=== PATIENT | female | born 1930 | race Caucasian/White ===

== ENCOUNTER 2018-12-22 09:40 | Inpatient (IN) ==
[2018-12-22] MEDS ORDERED: ONDANSETRON 4 MG/2 ML VIAL IVP ONE (09:54)
[2018-12-22] MEDS ORDERED: LORazepam 2 MG/1 ML VIAL IVP ONE (09:54)
[2018-12-22] MEDS ORDERED: Sodium Chloride 0.9% 1,000 ML PRIMARY IV ONE (09:54)
[2018-12-22] MEDS ORDERED: MORPHINE SULFATE 4 MG/1 ML IVP ONE (09:54)
[2018-12-22] MEDS ORDERED: LIDOCAINE HCL 2 % 10 ML JELLY URO-JECT TOPICAL PRN ×2 (09:56→12:41)
[2018-12-22] MEDS ORDERED: IPRATROPIUM/ALBUTEROL SULFATE 3 ML NEB NEB ONE (09:56)
--- NOTE | 2018-12-22 09:57 | PDOC ---
Hip Injury/Pain HPI - General Chief Complaint: Lower Extremity Problem/Injury Stated Complaint: lt hip/pelvic pain, found down Date Seen by Provider: 12/22/18 Time Seen by Provider: 09:49 Source: POSITIVE: Patient, EMS Exam Limitations: POSITIVE: No limitations Nurse's Notes Reviewed & Considered: Yes EMS Report Reviewed & Considered: Verbal - History of Present Illness Initial Comments: This is a well-developed, well-nourished, 88-year-old female, complaining of left hip pain. Patient fell out of a chair earlier today and EMS was summoned because of the patient's left hip pain with deformity of her hip, shortening of her leg, and external rotation. Have you received a tetanus shot in the past 10 years?: Yes Location: Left Hip Timing: REPORTS: Abrupt Duration: 1/2 hour Severity: Severe Location at Time of Onset: REPORTS: Home Context: REPORTS: Fall Concurrent Injuries: DENIES: Neck, Head, Back, Chest, Abdomen, Extremities, Face, Other Quality: REPORTS: "Pain" Modifying Factors: REPORTS: Movement, Nothing Relieves Symptoms Prior to Fall: DENIES: Fever, Chills, Diaphoresis, Diaphoresis, Chest Pain, Weakness, Rapid Heart Rate, Nausea, Vomiting, Diarrhea, Dizziness, Light- Headedness, Headache, Seizure, Other Subsequent Symptoms: DENIES: Sensory Loss, Motor Loss, Numbness, Weakness, Bowel / Bladder Problems, Other Similar Symptoms Previously: No Recent Care Received: REPORTS: Denies Any Prior Injuries Related to Current Complaint?: No - Patient Home Medications Home Medications: Home Medications Acetaminophen [Tylenol] 2 tab PO Q6H PRN tab 01/14/17 hydrochlorothiazide 12.5 mg tablet 12.5 mg PO QDAY tab 07/28/17 mirtazapine 7.5 mg tablet 7.5 mg PO QHS 07/28/17 menthol 4 % topical gel 4 % TOPICAL TID PRN ml 03/12/18 cholecalciferol (vitamin D3) 5,000 unit capsule 5,000 unit PO QDAY #90 cap 07/07/18 citalopram 20 mg tablet 20 mg PO QD tab 09/18/18 - Patient Allergies Allergies/Adverse Reactions: Allergies Allergy/AdvReac Type Severity Reaction Status Date / Time bacitracin [From Neosporin] Allergy Unknown UNKNOWN Unverified 04/13/14 14:13 hydrocodone [Hydrocodone] Allergy Unknown UNKNOWN Unverified 04/13/14 14:13 benzalkonium chloride Allergy Verified 11/16/18 12:33 kiwi Allergy Verified 01/26/18 09:57 sulfamethoxazole Allergy Verified 11/16/18 12:33 [From Bactrim] trimethoprim [From Bactrim] Allergy Verified 11/16/18 12:33 Past Medical History - heen HEENT History: Denies History Cardiovascular History: Hypertension, CAD, Hyperlipidemia Respiratory History: COPD Gastrointestinal History: Denies History Genitourinary History: Denies History Endocrine History: Denies History Musculoskeletal History: Denies History Prosthesis or Implant: No Neurological History: Denies History Blood Disorders: Denies History Psychiatric History: Denies History History of Sexually Transmitted Diseases: No Cancer History: Denies History History of MDRO: No History of Other Communicable Diseases: No Alcohol Use: None In the Past 12 Months, Have Used or Abuse Any Substance: None ROS - Limitations ROS Limitations: No Limitations Constitution: REPORTS: Denies Symptoms Cardiovascular: REPORTS: Denies Cardiac Symptoms Respiratory: REPORTS: Wheezing Neurological: REPORTS: Denies Neuro Symptoms Gastrointestinal: REPORTS: Denies GI Symptoms Endocrine: REPORTS: Denies Symptoms Musculoskeletal: REPORTS: Joint Pain (Left hip) Genitourinary: REPORTS: Denies Symptoms Eyes: REPORTS: Denies Symptoms ENT: REPORTS: Denies Symptoms Skin: REPORTS: Denies Skin Symptoms Lympathic: REPORTS: Denies Lympathic Symptoms Immunologic: POSITIVE: Denies Symptoms Psychiatric: POSITIVE: Denies Psych Symptoms Hip Injury / Pain Exam - General Appearance General Appearance: POSITIVE: Alert, Cooperative, Severe Distress - Lower Extremity Extremities: POSITIVE: Shortening of Leg (Left leg), External Rotation of Leg (Left leg), Hip Pain on Leg Movement (Left leg), Hip/Knee Tenderness (Left hip) - HEENT HEENT: POSITIVE: Head Inspection Nml, Eyes Inspection Nml, Ears Inspection Nml, Nose Inspection Nml, Oral/Dental Inspect. Nml, Pharynx Inspect. Nml, PERRL, EOMI - Pupil Size Pupil Size: 5 mm: Bilateral - Neck/Back Neck: POSITIVE: Normal Inspection, Non-Tender Back: POSITIVE: Normal Inspection, No CVA Tenderness, Non Tender, Painless ROM, No Vertebral Tenderness - Respiratory / CVS Cardiovascular: POSITIVE: Regular Rate and Rhythm, Heart Sounds Normal, Equal Pulses, Strong Pulses, No Murmur, No Gallop, No JVD, No Pulse Deficit Respiratory: POSITIVE: Chest Non Tender, No Ecchymosis, No Respiratory Distress, Wheezes Peripheral Pulses: Brachial (L): 4+, Radial (R): 4+, Femoral (L): 4+, Dorsalis- pedis (R): 4+, Dorsalis-pedis (L): 4+ - Abdomen Abdomen: Soft: (All Quadrants), Normal Bowel Sounds: (All Quadrants), Denies Tenderness: (All Quadrants), No Splenomegaly: (All Quadrants), No Hepatomegaly: (All Quadrants), No Guarding: (All Quadrants), No Rebound: (All Quadrants), No Palpable Pulse: (All Quadrants), No Palpabale Mass: (All Quadrants), No Distention: (All Quadrants), No Rigidity: (All Quadrants) - Skin Skin: POSITIVE: Color Normal, No Rash, Warm, Dry, Normal Palpation - Neuro/Psych Neuro / Psych: POSITIVE: Oriented x 3, Neuro Grossly Intact, Mood Appropriate, Affect Appropriate Hip Injury / Pain Progress - Results Reviewed by me Xrays/CTs/US Reviewed by me: Yes Discussed with Radiologist: Yes Lab Results Reviewed by Me: Yes CBC and BMP: 12/22/18 10:07 12/22/18 10:07 Lab Results:: Laboratory Results 12/22/18 12/22/18 12/22/18 10:07 10:07 10:07 WBC 8.6 RBC 4.53 Hgb 14.5 Hct 43.1 MCV 95 MCH 31.9 H MCHC 33.6 RDW Coeff of Jeff 13.6 Plt Count 228 MPV 7.8 Neutrophils % (Manual) 67.3 Band Neutrophils % Not Reportable Lymphocytes % (Manual) 18.9 Monocytes % (Manual) 9.4 Eosinophils % (Manual) 3.7 Basophils % (Manual) 0.7 Metamyelocytes % Not Reportable Myelocytes % Not Reportable Promyelocytes % Not Reportable Blast Cells Not Reportable WBC Morphology Comment Normal morphology Plt Morphology Comment Normal morphology RBC Morph Comment Normal morphology PT 12.9 H INR 1.12 APTT 30.7 Sodium 144 Potassium 3.8 Chloride 100 Carbon Dioxide 31 Anion Gap 13 BUN 22 Creatinine 1.3 H Estimated GFR Wildlife Photographer BUN/Creatinine Ratio 16.92 Glucose 90 Calculated Osmolality 300.0 H Calcium 9.5 Magnesium 1.8 Total Bilirubin 0.5 AST 26 ALT 16 Alkaline Phosphatase 39 C-Reactive Protein 2.3 H NT-Pro-B Natriuret Pep 403 Total Protein 6.8 Albumin 3.9 Globulin 3.0 Albumin/Globulin Ratio 1.30 TSH 12/22/18 10:07 WBC RBC Hgb Hct MCV MCH MCHC RDW Coeff of Jeff Plt Count MPV Neutrophils % (Manual) Band Neutrophils % Lymphocytes % (Manual) Monocytes % (Manual) Eosinophils % (Manual) Basophils % (Manual) Metamyelocytes % Myelocytes % Promyelocytes % Blast Cells WBC Morphology Comment Plt Morphology Comment RBC Morph Comment PT INR APTT Sodium Potassium Chloride Carbon Dioxide Anion Gap BUN Creatinine Estimated GFR BUN/Creatinine Ratio Glucose Calculated Osmolality Calcium Magnesium Total Bilirubin AST ALT Alkaline Phosphatase C-Reactive Protein NT-Pro-B Natriuret Pep Total Protein Albumin Globulin Albumin/Globulin Ratio TSH 0.949 EKG Interpreted/Reviewed By Me:: Yes - Patient's Progress Re-Examine Time: 12:03 Status: POSITIVE: Improved - Consult Consult (If Yes, Name of Consulting MD & Time Called): Yes (Dr. Gupta and Dr. Pearce at 1200 hrs.) Consulting MD will see pt:: POSITIVE: [facility] Admit Counseled: POSITIVE: Patient, RE: Lab Results, RE: Radiology Results, RE: DX, RE : Need for F/U Patient Care Time - Estimated PCT Patient Care Time (In Minutes): 45 Vital Signs - Recent Vital Signs Vital Signs: Vital Signs (Last 8 hours) Temp Pulse Pulse Resp BP Pulse Ox 12/22/18 10:17 83 20 98 12/22/18 10:16 87 22 91 12/22/18 09:40 99.0 F 95 18 112/78 92 - VS Reviewed Vital Signs Reviewed: Yes Discharge Clinical Impression: Intertrochanteric fracture of left hip Discharge Disposition: Admit to Inpatient Condition: Stable Follow Up With: ELLIE FUENTES [Primary Care Provider] - Date Decision to Admit to Inpatient: 12/22/18 Time Decision to Admit to Inpatient: 12:03
--- NOTE | 2018-12-22 10:12 | EKG ---
[address] [address] Measurements Intervals [place] Rate: 82 P: 69 MN: 141 QRS: 56 QRSD: 134 T: 20 QT: 396 QTc: 434 Interpretive Statements SINUS RHYTHM RIGHT BUNDLE BRANCH BLOCK [120+ ms QRS DURATION, UPRIGHT V1, 40+ ms S IN I/aVL/V4/V5/V6] No previous ECG available for comparison Electronically Signed On 12-22-18 11:04:23 MDT by Jong Hope MD [email or web address]
[2018-12-22 10:18] LABS: Hematocrit [HCT] 43.1 % (37.0-47.0); Hemoglobin [HGB] 14.5 g/dL (12.0-16.0); MEAN CORPUSCULAR HEMOGLOBIN 31.9 PG (27-31); MEAN CORPUSCULAR HGB CONC 33.6 g/dL (33-37); MEAN CORPUSCULAR VOLUME 95 FL (81-99); RED BLOOD COUNT 4.53 10^6/uL (4.20-5.40)
[2018-12-22 10:19] LABS: MEAN PLATELET VOLUME 7.8 FL (7.4-12.2)
[2018-12-22 10:27] LABS: BLOOD UREA NITROGEN 22 mg/dL (7-22); BUN/CREATININE RATIO 16.92 (6-20); SERUM ALBUMIN 3.9 g/dL (3.5-4.8)
[2018-12-22 10:40] LABS: BASOPHILS % (MANUAL) 0.7 % (0-1); EOSINOPHILS % (MANUAL) 3.7 % (0-8); MONOCYTES % (MANUAL) 9.4 % (0-12); NEUTROPHILS % (MANUAL) 67.3 % (50-80); PLATELET MORPHOLOGY COMMENT NORMAL MORPHOLOGY (NORM); RBC MORPHOLOGY COMMENT NORMAL MORPHOLOGY (NORM); WBC MORPHOLOGY COMMENT NORMAL MORPHOLOGY (NORM)
--- NOTE | 2018-12-22 11:01 | DI ---
XR CXR 1VW,12/22/2018 9:54 AM: Clinical History: Wheezing Previous Exam: None at this facility. Findings: A single frontal radiograph of the chest is obtained, and demonstrates clear lungs. The cardiomediast inum and bony thorax are unremarkable except for postsurgical changes consistent with CABG. Sternotomy wires are seen. Mild diffuse osteopenia is noted. Impression: No acute cardiopulmonary disease.
--- NOTE | 2018-12-22 11:10 | DI ---
XR HIP COMPLETE MIN 2VW U/L,12/22/2018 9:54 AM: Clinical History: Deformity and left hip pain. Previous Exam: None at this facility. Findings: AP view of the pelvis, AP view of the left hip and crosstable lateral view of the left hip are obtain ed, and demonstrate a slightly displaced intertrochanteric fracture of the proximal left femur. Peripheral vascular calcifications are noted. There is mild diffuse osteopenia. Impression: Status post left proximal femoral intertrochanteric fracture.
--- NOTE | 2018-12-22 12:22 | DI ---
CT Lower Extremity WO Contrast,12/22/2018 10:39 AM: Clinical History: Left hip fracture. Previous Exam: None at this facility. Findings: Multiple helically acquired CT images are obtained through the left hip without contrast, and demonst rate a displaced, slightly comminuted intertrochanteric fracture of the left hip. There are degenerat antonio changes of the left hip with some subchondral cyst formation along the superior lateral acetabulu m. Superior and inferior pubic rami are within normal limits. There is some mild diffuse osteopenia. A few peripheral vascular calcifications are seen. Impression: Slightly comminuted intertrochanteric fracture of the left proximal femur.
[2018-12-22 12:37] LABS: BILIRUBIN,URINE NEGATIVE (NEG); CLARITY,URINE CLEAR (CLEAR); COLOR,URINE YELLOW (Y); GLUCOSE, URINE (UA) NEGATIVE (NEG); OCCULT BLOOD,URINE NEGATIVE (NEG); PH,URINE 5.5 (5.0-8.5); PROTEIN,URINE NEGATIVE (NEG); URINE SAMPLE TYPE CLEAN CATCH URINE; UROBILINOGEN,URINE 0.2 EU/dL (0.2)
[2018-12-22] MEDS ORDERED: ONDANSETRON 4 MG/2 ML VIAL IVP PRN (12:41)
[2018-12-22] MEDS ORDERED: DOCUSATE 100 MG CAPSULE PO PRN (12:41)
[2018-12-22] MEDS ORDERED: CALCIUM CARBONATE 500 MG (TUMS) CHEWABLE TABLET PO PRN (12:41)
[2018-12-22] MEDS ORDERED: traMADol 50 MG TABLET PO PRN (12:41)
[2018-12-22] MEDS ORDERED: ACETAMINOPHEN 325 MG TABLET PO PRN (12:41)
[2018-12-22] MEDS ORDERED: LIDOCAINE W/ SODIUM BICARB 0.5 ML SYR SUBD PRN (12:41)
--- NOTE | 2018-12-22 13:13 | PDOC ---
HPI - History of Present Illness Date of Service: 12/22/18 Time of Service: 13:08 Chief Complaint: I hurt all over History of Present Illness: This very pleasant 88-year-old female who suffers from dementia, coronary artery disease status post CABG, amongst other medical problems who resides at [facility] and apparently had some sort of ground-level fall that was described as mechanical and I spoke with the emergency room physician. The patient cannot provide me any history of present events due to her dementia. She states that she is in pain "all over". When I try to pinpoint exactly where she hurts the most she seems to isolate the left hip. She has a left lower extremity that is shorter than the right, and is externally rotated, consistent with hip fracture. Imaging showed an intertrochanteric hip fracture. She does not complain of shortness of breath or nausea or vomiting. Unfortunately other details are just very difficult to obtain, again, due to dementia. No family is available at this time. Past Medical History Medical History: 1. Depression. 2. Hypertension. 3. Coronary artery disease status post CABG and subsequently later on had a stent. 4. Dementia Surgical History: 1. CABG. 2. Coronary artery stent. 3. Cholecystectomy. 4. Knee surgery. 5. History of tonsillectomy Pertinent Family History: I cannot obtain family history from the patient due to her dementia Past Social History: Reportedly quit smoking over 30 years ago. Does not drink alcohol. Resides in [facility]. Has children and is . Tobacco Use: Former Smoker In the Past 12 Months, Have Used or Abuse Any of the Following Substance: None Alcohol Use: None Medication / Allergies Home Medications: Home Medications Medication Instructions Recorded Confirmed Acetaminophen [Tylenol] 2 tab PO Q6H PRN tab 01/14/17 11/16/18 hydrochlorothiazide 12.5 mg tablet 12.5 mg PO QDAY tab 07/28/17 11/16/18 mirtazapine 7.5 mg tablet 7.5 mg PO QHS 07/28/17 11/16/18 menthol 4 % topical gel 4 % TOPICAL TID PRN ml 03/12/18 11/16/18 cholecalciferol (vitamin D3) 5,000 5,000 unit PO QDAY #90 cap 07/07/18 11/16/18 unit capsule citalopram 20 mg tablet 20 mg PO QD tab 09/18/18 11/16/18 Allergies/Adverse Reactions: Allergies Allergy/AdvReac Type Severity Reaction Status Date / Time bacitracin [From Neosporin] Allergy Unknown UNKNOWN Unverified 04/13/14 14:13 hydrocodone [Hydrocodone] Allergy Unknown UNKNOWN Unverified 04/13/14 14:13 benzalkonium chloride Allergy Verified 11/16/18 12:33 kiwi Allergy Verified 01/26/18 09:57 sulfamethoxazole Allergy Verified 11/16/18 12:33 [From Bactrim] trimethoprim [From Bactrim] Allergy Verified 11/16/18 12:33 Review of Systems - Review of Systems ROS Unobtainable: Due to Mental Status (I cannot obtain a review systems due to the patient's dementia.) Exam - Vitals Vital Signs: Vital Signs Temperature 99.0 F Temperature Source Temporal Artery Scan Pulse Rate [Pulse Oximeter 95 Right] Pulse Rate 83 Respiratory Rate 20 Blood Pressure [Left Arm] 112/78 Pulse Ox 98 Oxygen Flow Rate 2 lpm Oxygen Delivery Method Nasal Cannula Height 5 ft Weight 173 lb 9.6 oz - General General Appearance: No Acute Distress, Cooperative - Head Head Exam: Normal Inspection, Normocephalic, Atraumatic - Eye Additional Eye Exam Details: Some dryness to the eyes. - ENT ENT Exam: POSITIVE: Mucous Membranes Dry - Neck Neck Exam: Normal Inspection, No Tenderness, No Lymphadenopathy, No Thyromegaly, JVP is not Raised - Respiratory Respiratory Exam: POSITIVE: Breathing Non Labored, Coarse Breath Sounds (In the bases bilaterally) - Cardiovascular Cardiovascular Exam: POSITIVE: No Murmur, No Clicks, No Gallops, No Rubs, Irregular Rhythm, No JVD - GI/Abdominal GI/Abdominal Exam: POSITIVE: Normal Bowel Sounds, Non Tender, Non Distended, Soft - Rectal Rectal Exam: POSITIVE: Deferred - External Exam: POSITIVE: Deferred Exam: POSITIVE: Deferred - Extremities Extremities Exam: POSITIVE: No Clubbing Present, No Edema Present, No Cyanosis Present Additional Extremities Exam Details: Left lower extremity is externally rotated and shorter than the right. - Back Back Exam: POSITIVE: No CVA Tenderness - Neurological Neurological Exam: POSITIVE: Alert, No Facial Droop, Speech Intact / Clear Additional Neurological Exam Details: The patient cannot tell me where she is at and cannot tell me the situation - Integumentary Integumentary Exam: POSITIVE: Normal Color, Warm, Dry, Intact Results - Labs CBC and BMP: 12/22/18 10:07 12/22/18 10:07 Additional Lab Results: Laboratory Results 12/22/18 12/22/18 12/22/18 10:07 10:07 10:07 WBC 8.6 RBC 4.53 Hgb 14.5 Hct 43.1 MCV 95 MCH 31.9 H MCHC 33.6 RDW Coeff of Jeff 13.6 Plt Count 228 MPV 7.8 Neutrophils % (Manual) 67.3 Band Neutrophils % Not Reportable Lymphocytes % (Manual) 18.9 Monocytes % (Manual) 9.4 Eosinophils % (Manual) 3.7 Basophils % (Manual) 0.7 Metamyelocytes % Not Reportable Myelocytes % Not Reportable Promyelocytes % Not Reportable Blast Cells Not Reportable WBC Morphology Comment Normal morphology Plt Morphology Comment Normal morphology RBC Morph Comment Normal morphology PT 12.9 H INR 1.12 APTT 30.7 Sodium 144 Potassium 3.8 Chloride 100 Carbon Dioxide 31 Anion Gap 13 BUN 22 Creatinine 1.3 H Estimated GFR Sole Sewer Hand BUN/Creatinine Ratio 16.92 Glucose 90 Calculated Osmolality 300.0 H Calcium 9.5 Magnesium 1.8 Total Bilirubin 0.5 AST 26 ALT 16 Alkaline Phosphatase 39 C-Reactive Protein 2.3 H NT-Pro-B Natriuret Pep 403 Total Protein 6.8 Albumin 3.9 Globulin 3.0 Albumin/Globulin Ratio 1.30 TSH Ur Collection Type Urine Color Urine Clarity Urine pH Ur Specific [place] Urine Protein Urine Glucose (UA) Urine Ketones Urine Occult Blood Urine Nitrate Urine Bilirubin Urine Urobilinogen Ur Leukocyte Esterase Ur Culture Indicated? 12/22/18 12/22/18 10:07 12:27 WBC RBC Hgb Hct MCV MCH MCHC RDW Coeff of Jeff Plt Count MPV Neutrophils % (Manual) Band Neutrophils % Lymphocytes % (Manual) Monocytes % (Manual) Eosinophils % (Manual) Basophils % (Manual) Metamyelocytes % Myelocytes % Promyelocytes % Blast Cells WBC Morphology Comment Plt Morphology Comment RBC Morph Comment PT INR APTT Sodium Potassium Chloride Carbon Dioxide Anion Gap BUN Creatinine Estimated GFR BUN/Creatinine Ratio Glucose Calculated Osmolality Calcium Magnesium Total Bilirubin AST ALT Alkaline Phosphatase C-Reactive Protein NT-Pro-B Natriuret Pep Total Protein Albumin Globulin Albumin/Globulin Ratio TSH 0.949 Ur Collection Type Clean catch urine Urine Color Yellow Urine Clarity Clear Urine pH 5.5 Ur Specific [place] 1.015 Urine Protein Negative Urine Glucose (UA) Negative Urine Ketones Negative Urine Occult Blood Negative Urine Nitrate Negative Urine Bilirubin Negative Urine Urobilinogen 0.2 Ur Leukocyte Esterase Negative Ur Culture Indicated? Culture not set - EKG Data -: EKG Interpreted by Me Rate: Normal EKG Shows Normal: Sinus Rhythm - EKG Data EKG Interpretation: Nonspecific ST-T Wave Changes (T-wave inversions in V1 V2 and flattening in V3), Other (The patient has a right bundle branch block) - Imaging Status: Image Reviewed by Me (I looked at the chest x-ray, I think there could be some signs of fluid congestion, but no pneumonia. There are signs of prior CABG with sternotomy wires noted in prior stent placement. The patient had an x-ray of her left hip and on my view of that, there is an intertrochanteric hip fracture.) Assessment and Plan - Patient Problems (1) Intertrochanteric fracture of left hip Current Visit: Yes Status: Acute Code(s): S72.142A - Displaced i ntertrochanteric fracture of left femur, initial encounter for closed fracture Qualifiers: Encounter type: initial encounter Fracture type: closed Fracture alignment: displaced Qualified Code(s): S72.142A - Displaced intertrochanteric fracture of left femur, initial encounter for closed fracture (2) Coronary artery disease Current Visit: Yes Status: Acute Code(s): I25.10 - Atherosclerotic heart disease of [place] coronary artery without angina pectoris Qualifiers: Coronary Disease-Associated Artery/Lesion type: bypass graft, autologous artery Associated angina: without angina Qualified Code(s): I25.810 - Atherosclerosis of coronary artery bypass graft(s) without angina pectoris (3) Vitamin D deficiency Current Visit: Yes Status: Chronic Code(s): E55.9 - Vitamin D deficiency, unspecified (4) Benign hypertension Current Visit: Yes Status: Chronic (5) Chronic obstructive lung disease Current Visit: Yes Status: Chronic Qualifiers: COPD type: emphysema Emphysema type: centrilobular Qualified Code(s): J43.2 - Centrilobular emphysema; J43.2 - Centrilobular emphysema; J43.2 - C entrilobular emphysema; J43.2 - Centrilobular emphysema (6) Gastroesophageal reflux disease Current Visit: Yes Status: Chronic Qualifiers: Esophagitis presence: esophagitis presence not specified Qualified Code(s): K21.9 - Gastro-esophageal reflux disease without esophagitis - Assessment / Plan Additional Assessment/Plan Details: Admit the patient Orthopedic consultation for hip fracture. From on AHA/ACC non-vascular perioperative guidelines for surgical clearance perspective, I think the patient should proceed to the operating room with postoperative risk stratification. She has redness in that she has an age of 88 and has coronary artery disease and some nonspecific EKG changes, but no kidney failure, no history of stroke, and no congestive heart failure. However, given the nature of the injury I think the patient should proceed with surgery as noted above. Pain control with parenteral medications such as Dilaudid and tramadol. Antiemetics. Nothing by mouth at midnight. Eventual DVT prophylaxis postoperatively, 28-35 days. Hold today PT and OT. Vitamin D level. Continue vitamin D therapy MRSA screening [place] catheter due to immobility and hopefully get that out 48 hours postoperatively if possible Likely option postop will be to return back to [facility] Type and screen for 2 units packed red blood cells CODE STATUS is discussed, patient is DNR as I believe CPR to be futile in this patient based on age and medical conditions. I placed a call to the patient's daughter to discuss further. Left message.
[2018-12-22] MEDS: CITALOPRAM 20 MG TABLET PO SCH (13:47)
[2018-12-22] MEDS: HYDROmorphone 2 MG/1 ML IVP PRN ×2 (14:02→18:54)
[2018-12-22] MEDS: Lactated Ringers 1,000 ML PRIMARY IV SCH (14:02)
--- NOTE | 2018-12-22 15:59 | CONSULT ---
Consult Note - Consult Consult Date: 12/22/18 Reason for Consult: PreOp Consulation : Ortho Primary Care Provider: Heath Quigley MD - History of Present Illness History of Present Illness: This is a pleasant 88-year-old female with dementia who is admitted through the emergency room with a left intertrochanteric hip fracture. Patient has been admitted to Dr. Gilmore's service. I have had a chance to speak with the patient as well as both of her daughters. One of her daughters has power of business development executive. She is a fairly poor historian and is unable to provide details as to how she fell. Reportedly she fell at the [facility] sometime today sustaining the fracture. She is admitted for definitive care. Examination reveals a pleasant female slightly overweight with her left lower extremity in Horne's traction. Lateral skin is intact. X-rays and CAT scan of been reviewed. These reveal a left intertrochanteric hip fracture with a fracture of the lesser tuberosity and also fracture of the greater tuberosity. Labs have been commented on by Dr. Pearce. Impression: Unstable left intertrochanteric hip fracture in an 88-year-old female. Patient has a DO NOT RESUSCITATE on the chart. Plan: Is to proceed with intramedullary hip fixation tomorrow afternoon. I discussed the risks at length with the 2 daughters. These include but are not limited to infection, failure of fixation, malunion, nonunion, blood clot, anesthetic related complications, and even . They understand these risks and agree to let me proceed. I have spoken with Dr. Pearce who feels like proceeding with the surgery is reasonable. We will have the daughter with power of business development executive signed the consent form prior to proceeding. Past Medical History Medical History: 1. Depression. 2. Hypertension. 3. Coronary artery disease status post CABG and subsequently later on had a stent. 4. Dementia Surgical History: 1. CABG. 2. Coronary artery stent. 3. Cholecystectomy. 4. Knee surgery. 5. History of tonsillectomy Pertinent Family History: I cannot obtain family history from the patient due to her dementia Past Social History: Reportedly quit smoking over 30 years ago. Does not drink alcohol. Resides in [facility]. Has children and is . Tobacco Use: Former Smoker In the Past 12 Months, Have Used or Abuse Any of the Following Substance: None Alcohol Use: None Medication / Allergies Home Medications: Home Medications Medication Instructions Recorded Confirmed Acetaminophen [Tylenol] 2 tab PO Q6H PRN tab 01/14/17 11/16/18 hydrochlorothiazide 12.5 mg tablet 12.5 mg PO QDAY tab 07/28/17 11/16/18 mirtazapine 7.5 mg tablet 7.5 mg PO QHS 07/28/17 11/16/18 menthol 4 % topical gel 4 % TOPICAL TID PRN ml 03/12/18 11/16/18 cholecalciferol (vitamin D3) 5,000 5,000 unit PO QDAY #90 cap 07/07/18 11/16/18 unit capsule citalopram 20 mg tablet 20 mg PO QD tab 09/18/18 11/16/18 Allergies/Adverse Reactions: Allergies Allergy/AdvReac Type Severity Reaction Status Date / Time bacitracin [From Neosporin] Allergy Unknown UNKNOWN Unverified 04/13/14 14:13 benzalkonium chloride Allergy Unknown Unknown Verified 12/22/18 14:19 hydrocodone [Hydrocodone] Allergy Unknown UNKNOWN Unverified 04/13/14 14:13 kiwi Allergy unknown Verified 12/22/18 14:19 sulfamethoxazole Allergy Unknown Verified 12/22/18 14:19 [From Bactrim] trimethoprim [From Bactrim] Allergy Unknown Verified 12/22/18 14:19 Exam - Vitals Vital Signs: Vital Signs Temperature 97.8 F Temperature Source Temporal Artery Scan Pulse Rate [Pulse Oximeter 85 Right] Pulse Rate [Left Middle Finger 98 ] Pulse Rate 98 Respiratory Rate 24 Blood Pressure [Left Arm] 172/83 Pulse Ox [Left Middle Finger] 92 Pulse Ox 91 Oxygen Flow Rate [Left Middle 5 Finger] Oxygen Flow Rate 2 Oxygen Delivery Method [Left Oxymask Middle Finger] Oxygen Delivery Method Nasal Cannula Height 5 ft Weight 173 lb 9.6 oz Results - Labs CBC and BMP: 12/22/18 10:07 12/22/18 10:07
[2018-12-22] MEDS ORDERED: NALOXONE 0.4 MG/1 ML VIAL ONE ×2 (20:27→22:15)
[2018-12-22] MEDS ORDERED: Mirtazapine Tab 15 MG TAB PO SCH (21:00)
[2018-12-22] MEDS ORDERED: NALOXONE 0.4 MG/1 ML VIAL IVP ONE (22:13)
[2018-12-22] MEDS ORDERED: Lactated Ringers 1,000 ML PRIMARY IV SCH (23:55)
[2018-12-23 00:41] LABS: VENOUS PH 7.22 (7.32-7.42)
[2018-12-23 00:43] LABS: VENOUS PH 7.28 (7.32-7.42)
[2018-12-23] MEDS: Lactated Ringers 1,000 ML PRIMARY IV SCH ×2 (02:31→18:40)
[2018-12-23] MEDS: Acetaminophen 1000mg Inj 1,000 MG/100 ML VIAL IV PRN ×2 (02:37→11:23)
[2018-12-23 04:51] LABS: VENOUS PH 7.4 (7.32-7.42)
[2018-12-23] MEDS: CITALOPRAM 20 MG TABLET PO SCH (08:48)
[2018-12-23] MEDS ORDERED: CHOLECALCIFEROL 1000 IU TABLET PO SCH (09:00)
--- NOTE | 2018-12-23 11:24 | PT.PROG ---
Progress Note Progress Note: per nursing pt is on bedrest prior to surgery hold PT eval until after surgery
[2018-12-23] MEDS ORDERED: MIDAZOLAM HCL 2 MG/2 ML VIAL ONE (11:47)
[2018-12-23] MEDS ORDERED: fentaNYL Inj 100 MCG/2 ML VIAL ONE ×2 (11:47→16:44)
[2018-12-23] MEDS ORDERED: ePHEDrine Inj 50 MG/ML AMP ONE (11:48)
[2018-12-23] MEDS ORDERED: Sodium Chloride 0.9% vial 10 ML ONE (11:48)
[2018-12-23] MEDS ORDERED: ceFAZolin 1 GM VIAL IVP ONE (12:33)
[2018-12-23] MEDS ORDERED: ceFAZolin Inj 2gm (Premix) 2 GM/50 ML BAG IV ONE ×2 (12:34→14:48)
[2018-12-23] MEDS ORDERED: IPRATROPIUM/ALBUTEROL SULFATE 3 ML NEB NEB ONE ×2 (12:50→13:05)
[2018-12-23] MEDS ORDERED: ATROPINE SULFATE 0.4 MG/1 ML VIAL IVP PRN (12:51)
[2018-12-23] MEDS ORDERED: ONDANSETRON 4 MG/2 ML VIAL IVP PRN ×2 (12:51→17:13)
[2018-12-23] MEDS ORDERED: fentaNYL Inj 100 MCG/2 ML VIAL IVP PRN (12:51)
[2018-12-23] MEDS ORDERED: Prochlorperazine Edisylate Inj 10mg/2ml vial IVP PRN (12:51)
[2018-12-23] MEDS ORDERED: LIDOCAINE W/ SODIUM BICARB 0.5 ML SYR SUBD PRN (12:51)
[2018-12-23] MEDS ORDERED: Lactated Ringers 1,000 ML PRIMARY IV SCH (13:00)
[2018-12-23] MEDS ORDERED: KETAMINE HCL 100 MG/2 ML SYRINGE IV ONE (13:12)
[2018-12-23] MEDS ORDERED: Sodium Chloride 0.9% 0 ML ONE (13:33)
--- NOTE | 2018-12-23 13:54 | PDOC(PROG) ---
Date of Service: 12/23/18 Time of Service: 08:45 Interval History: Much more alert today. Became acidotic and had hypercapnic respiratory failure overnight from Dilaudid. We gave her Narcan and used BiPAP through the night, and her acidosis and hypercapnia have corrected. She denies chest pain or shortness of breath but her history is unreliable with her dementia. Objective : Data - Labs CBC and BMP: 12/22/18 10:07 12/22/18 10:07 Additional Lab Results: 12/22/18 12/23/18 12/23/18 12:27 00:18 04:32 VBG pH 7.28 L 7.40 VBG pCO2 71 H 46 VBG HCO3 33 H 29 H VBG Base Excess 6 H 4 H Vitamin D 25-Hydroxy Ur Culture Indicated? Culture not set 12/23/18 04:33 VBG pH VBG pCO2 VBG HCO3 VBG Base Excess Vitamin D 25-Hydroxy 61.2 Ur Culture Indicated? Objective : Exam - General General Appearance: No Acute Distress, Cooperative Additional General Exam Details: Selected Entries 12/23/18 07:36 12/23/18 11:00 Temperature 97.5 F Pulse Rate [Pulse Oximeter Right] 72 Respiratory Rate 16 Blood Pressure [Left Arm] 127/63 Blood Pressure Mean [Left Arm] 84 Pulse Ox [Left Middle Finger] 95 Oxygen Flow Rate [Left Middle Finger] 2 - Head Head Exam: Normal Inspection, Normocephalic, Atraumatic - Eye Eye Exam: No Scleral Icterus - ENT ENT Exam: Mucous Membranes Moist - Neck Neck Exam: JVP is not Raised - Respiratory Respiratory Exam: Breathing Non Labored, Coarse Breath Sounds - Cardiovascular Cardiovascular Exam: RRR, No Murmur, No Clicks, No Gallops, No Rubs, No JVD - GI/Abdominal GI/Abdominal Exam: Normal Bowel Sounds, Non Tender, Non Distended, Soft - Extremities Extremities Exam: No Clubbing Present, No Edema Present, No Cyanosis Present - Neurological Neurological Exam: Alert, No Facial Droop, Speech Intact / Clear, Altered Assessment and Plan - Patient Problems (1) Intertrochanteric fracture of left hip Current Visit: Yes Status: Acute Code(s): S72.142A - Displaced intertrochanteric fracture of left femur, initial encounter for closed fracture Qualifiers: Encounter type: initial encounter Fracture type: closed Fracture alignment: displaced Qualified Code(s): S72.142A - Displaced intertrochanteric fracture of left femur, initial encounter for closed fracture (2) Coronary artery disease Current Visit: Yes Status: Acute Code(s): I25.10 - Atherosclerotic heart disease of [place] coronary artery without angina pectoris Qualifiers: Coronary Disease-Associated Artery/Lesion type: bypass graft, autologous artery Associated angina: without angina Qualified Code(s): I25.810 - Atherosclerosis of coronary artery bypass graft(s) without angina pectoris (3) Vitamin D deficiency Current Visit: Yes Status: Chronic Code(s): E55.9 - Vitamin D deficiency, unspecified (4) Benign hypertension Current Visit: Yes Status: Chronic (5) Chronic obstructive lung disease Current Visit: Yes Status: Chronic Qualifiers: COPD type: emphysema Emphysema type: centrilobular Qualified Code(s): J43.2 - Centrilobular emphysema; J43.2 - Centrilobular emphysema; J43.2 - Centrilobular emphysema; J43.2 - Centrilobular emphysema (6) Gastroesophageal reflux disease Current Visit: Yes Status: Chronic Qualifiers: Esophagitis presence: esophagitis presence not specified Qualified Code(s): K21.9 - Gastro-esophageal reflux disease without esophagitis - Assessment / Plan Additional Assessment/Plan Details: I still think patient is okay for OR today. I spoke with anesthesia and surgery through the morning. We discussed doing an updraft at the time of surgery with Kobi. I think overall, the patient probably has underlying COPD and possibly obstructive sleep apnea with hypercapnia or tendency to go that way. Avoid narcotics. Postoperatively, DVT prophylaxis. Labs in a.m. Eventual disposition would be back to [facility].
[2018-12-23] MEDS ORDERED: PROPOFOL 10 MG/1 ML (200 MG/20 ML) VIAL IV ONE (13:55)
[2018-12-23] MEDS ORDERED: TRANEXAMIC ACID 1,000 MG / 10 ML VIAL ONE (14:24)
[2018-12-23] MEDS ORDERED: BUPivacaine Inj 0.25% PF - 10ml vial ONE (15:31)
[2018-12-23] MEDS ORDERED: BUPivacaine Liposome/PF (Exparel) Inj 20ml vial INFIL ONE (15:31)
--- NOTE | 2018-12-23 16:31 | ORTHO.OP ---
Surgery Date: 12/23/18 Preoperative Diagnosis: Comminuted intertrochanteric hip fracture left hip Postoperative Diagnosis: Same Procedure: Open treatment intertrochanteric left hip fracture using intramedullary hip screw (affixus hip fracture nail by [employer]) Surgeon: Festus Gupta MD Merchandise Shopper: ZACHARIAH Sherman Anesthesia Provider: Abigail Celeste CRNA Anesthesia Type: General Estimated Blood Loss (mL): 125 Fluids: 1600 mL crystalloid Complications: None. Urine output 100 mL Operative Summary: Extubated and taken to recovery in stable condition.
--- NOTE | 2018-12-23 16:43 | CRNA.PROGR ---
Anesthesia Time - Procedure/Recovery Time Start Date: 12/23/18 End Date: 12/23/18 Anesthesia : Time In: 13:51 Anesthesia : Time Out: 16:17 Anesthesia : Total Time: 146 - Total Anesthesia Time Total Anesthesia Time (minutes): 146 - Other Weight: 78.744 kg Height: 5 ft Body Mass Index (BMI): 33.9 Physical Status: P3 Anesthesia Type: General Anesthesia : LMA
--- NOTE | 2018-12-23 16:44 | CRNA.PROGR ---
Anesthesia Recovery Phase I - Post Anesthesia Evaluation Patient's Condition on Arrival in Phase I: Stable Patient's Condition on Arrival in Phase II: Stable (medicated.) Pain Level: 8
--- NOTE | 2018-12-23 16:44 | CRNA.PROGR ---
Post Anesthesia Phase II - Post Anesthesia Phase II Patient Stable and Discharged To: Med/Surg Care Assumed By Surgeon: Festus Gupta MD Temperature: 98 F Pulse Rate: 83 Respiratory Rate: 16 Blood Pressure: 154/75 Pulse Ox: 93 Total Taran Score at Discharge: 9 Post Anesthesia Discharge Criteria Met: Yes
[2018-12-23] MEDS ORDERED: D5-1/2NS + 20mEq KCL 1,000 ML PRIMARY IV SCH (17:13)
[2018-12-23] MEDS ORDERED: HYDROmorphone 2 MG/1 ML IVP PRN (17:13)
[2018-12-23] MEDS: traMADol 50 MG TABLET PO PRN (17:35)
[2018-12-23] MEDS ORDERED: Acetaminophen 1000mg Inj 1,000 MG/100 ML VIAL IV PRN (18:20)
[2018-12-23] MEDS: DOCUSATE 100 MG CAPSULE PO SCH (20:17)
[2018-12-23] MEDS: Mirtazapine Tab 15 MG TAB PO SCH (20:17)
[2018-12-23] MEDS: ceFAZolin Inj 2gm (Premix) 2 GM/50 ML BAG IV SCH (21:56)
[2018-12-24] MEDS: traMADol 50 MG TABLET PO PRN ×3 (00:06→14:39)
[2018-12-24 04:53] LABS: BASOPHILS # (AUTO) 0.03 10*3/UL; BASOPHILS % (AUTO) 0.2 % (0-1); EOSINOPHILS # (AUTO) 0.12 10*3/UL; EOSINOPHILS % (AUTO) 0.9 % (0-8); Hematocrit [HCT] 38.1 % (37.0-47.0); Hemoglobin [HGB] 12.5 g/dL (12.0-16.0); LYMPHOCYTES # (AUTO) 1.22 10*3/uL; MEAN CORPUSCULAR HEMOGLOBIN 31.5 PG (27-31); MEAN CORPUSCULAR HGB CONC 32.8 g/dL (33-37); MEAN PLATELET VOLUME 10.5 FL (7.4-12.2); MONOCYTES # (AUTO) 0.99 10*3/UL (0.3-0.8); MONOCYTES % (AUTO) 7.3 % (5-15); NEUTROPHILS # (AUTO) 11.17 10*3/UL; NEUTROPHILS % (AUTO) 82.4 % (50-80); RED BLOOD COUNT 3.97 10^6/uL (4.20-5.40)
[2018-12-24 05:03] LABS: BLOOD UREA NITROGEN 20 mg/dL (7-22)
[2018-12-24 05:06] LABS: PLATELET MORPHOLOGY COMMENT NORMAL MORPHOLOGY (NORM); RBC MORPHOLOGY COMMENT NORMAL MORPHOLOGY (NORM); WBC MORPHOLOGY COMMENT NORMAL MORPHOLOGY (NORM)
[2018-12-24] MEDS: ceFAZolin Inj 2gm (Premix) 2 GM/50 ML BAG IV SCH (08:17)
[2018-12-24] MEDS: ACETAMINOPHEN 500 MG TABLET PO SCH ×3 (08:17→20:24)
[2018-12-24] MEDS: CHOLECALCIFEROL 1000 IU TABLET PO SCH (08:19)
[2018-12-24] MEDS: CITALOPRAM 20 MG TABLET PO SCH (08:20)
[2018-12-24] MEDS: DOCUSATE 100 MG CAPSULE PO SCH ×2 (08:20→20:24)
--- NOTE | 2018-12-24 08:51 | PDOC(PROG) ---
Date of Service: 12/24/18 Time of Service: 09:00 Interval History: Subjective Patient was laying in bed having her breakfast does not appear in distress. However she has dementia. She is not sure when she had her surgery. Denying pain. Denying shortness of breath. Objective : Data - Labs CBC and BMP: 12/24/18 03:55 12/24/18 03:55 Objective : Exam - General General Appearance: No Acute Distress, Cooperative - Head Head Exam: Normal Inspection - Eye Eye Exam: Normal Appearance - ENT ENT Exam: Normal Exam - Neck Neck Exam: Normal Inspection - Respiratory Respiratory Exam: Clear to Auscultation - Bilaterally - Cardiovascular Cardiovascular Exam: RRR - GI/Abdominal GI/Abdominal Exam: Normal Bowel Sounds, Non Tender, Non Distended, Soft, No Organomegaly - Rectal Rectal Exam: Deferred - External Exam: Deferred - Extremities Extremities Exam: Normal Inspection - Back Back Exam: Normal Inspection - Neurological Neurological Exam: Alert, CN II-XII Intact, No Facial Droop, Speech Intact / Clear, Moves All Extremities Equally - Psychiatric Psychiatric Exam: Normal Affect Assessment and Plan - Patient Problems (1) Intertrochanteric fracture of left hip Current Visit: Yes Status: Acute Comment: Status post surgery, PT and OT will see her today. Discussed with Dr. Gupta will put her on Lovenox for DVT prophylaxis. Code(s): S72.142A - Displaced intertrochanteric fracture of left femur, initial encounter for closed fracture Qualifiers: Encounter type: initial encounter Fracture type: closed Fracture alignment: displaced Qualified Code(s): S72.142A - Displaced intertrochanteric fracture of left femur, initial encounter for closed fracture (2) Benign hypertension Current Visit: Yes Status: Chronic Comment: She is on hydrochlorothiazide for blood pressure think will watch her blood pressure for now continue holding her medication. (3) Chronic obstructive lung disease Current Visit: Yes Status: Chronic Comment: She had an episode of respiratory acidosis secondary to medication and that seemed to be resolved. She is on 3 L of oxygen now. She said she is not on oxygen at the [facility] but I'm not sure whether this is accurate will double check. Qualifiers: COPD type: emphysema Emphysema type: centrilobular Qualified Code(s): J43.2 - Centrilobular emphysema; J43.2 - Centrilobular emphysema; J43.2 - Centrilobular emphysema; J43.2 - Centrilobular emphysema
--- NOTE | 2018-12-24 09:27 | DI ---
XR HIP COMPLETE MIN 2VW U/L,12/24/2018 7:00 AM: Clinical History: Left hip fracture. Previous Exam: December 22, 2018 Findings: 3 views of the left hip are obtained, and demonstrate a dynamic compression screw through the left fe moral neck. Alignment is near-anatomic. There is some mild displacement of the lesser trochanter. Overlying skin catalino are noted. There is a Wynne within the urinary bladder. Impression: Near-anatomic reduction and dynamic screw fixation of the left proximal femur.
[2018-12-24] MEDS: ENOXAPARIN SODIUM 40 MG/0.4 ML SYRINGE SUBCUT SCH (09:55)
--- NOTE | 2018-12-24 13:41 | ORTHO.PROG ---
Last Taken Vital Signs: Vital Signs - Last Taken Temperature 97.3 F 12/24/18 12:46 Pulse Rate 91 12/24/18 12:46 Respiratory Rate 20 12/24/18 12:46 Blood Pressure 114/45 12/24/18 12:46 Pulse Ox 93 12/24/18 12:46 Subjective: Patient lying in bed. Seems a little bit confused which is probably baseline. Unaware that she had her hip fixed. Not seeming to have much pain. Did fair in therapy today. Was able to get to a chair. Objective: Vital signs stable patient afebrile. Left hip incisions with dressings clean dry and intact. Hemoglobin and hematocrit 12 and 38. Assessment: Impression: Stable postop day 1 following fixation left intertrochanteric hip fracture. Plan: Plan: Is to recommend Lovenox for DVT prophylaxis. Fairly limited goals in therapy. We'll try to get patient into a chair. Continue to follow. Will likely require swing bed for some time.
--- NOTE | 2018-12-24 14:32 | PTI REPORT ---
Thank you for the referral of Astrid Mcpherson. She was seen on 12/24/18 for an inpatient evaluation status post left hip fracture. SUBJECTIVE: The patient is an 88-year-old female. According to the nurses, the patient appears very confused. When the therapist spoke with the patient directly, she state she doesn't know why she is in the hospital and is ready to go home and seemed genuinely surprised that she was having so much pain in her left hip along with difficulty with bed mobility. She reported having pain, but was unable to rate it on the verbal analog scale (0=no pain, 10=worst pain). At this time the patient states she knows where she lives but was unable to recall this information. Throughout today's treatment the patient kept asking where her daughter was. When the therapist asked where her daughter lived, she was unable to recall that information. PAST MEDICAL HISTORY: Past medical history can be found in the patient's medical record. OBJECTIVE FINDINGS: Pain: The patient reports having pain but is unable to rate it on the verbal analog scale. Incision: Her left lower extremity surgical incision is covered with a bandage and unable to be inspected with Grade II edema. Bed mobility: The patient required max assist to dependent x1 for bed mobility from supine to edge of bed as well as with constant verbal encouragement for proper hand placement and verbal reminders that she had just recently had surgery which is why she was having pain. The patient was dependent with transferring from edge of bed back to supine as well as for bed mobility. She was able to sit unsupported at edge of bed for greater than 5 minutes. Strength/Range of motion: Strength and range of motion were not able to be tested due to the patient's pain as well as her ability to understand. While in unsupported seated position, she was unable to perform a long arc quad but was able to perform active motion of her left lower extremity. Transfers: After 5 attempts the patient was able to stand at edge of bed with walker, gait belt, max assist, and constant verbal cues for proper hand placement and weight- bearing on the right vs. the left. She was only able to wire drawing die maker this position for 30 seconds before having to sit down. ASSESSMENT: Problem List: Decreased cognition Decreased functional mobility Decreased ambulation Increased pain Physical Therapy Goals: To be met by discharge from inpatient: Patient will be able to perform bed mobility with mod assist x1 or less. Patient will be able to perform a sit to stand transfer correctly 2/3 trials. Patient will be able to ambulate up to 10 feet for toileting ADLs. Patient will be able to tolerate standing for up to 2 minutes. TREATMENT PLAN: Patient will be seen B.I.D during the week and one time per day over the weekend as an inpatient to address the above goals and objectives. INITIAL TREATMENT: Treatment today consisted of the initial evaluation followed by the patient being issued a standard walker by the therapy department. We started out with min to mod assist x1 for the left lower extremity for bed mobility; however, the patient ended up requiring dependent transfer x1 from supine to edge of bed. At edge of bed the patient was able to sit for greater than 5 minutes without upper extremity support. We attempted sit to stands. We were able to be successful after 5 failed attempts; however, she did require constant verbal encouragement as well as cues for safety and proper weight-bearing on the right lower extremity and hand placement on her walker. She required max assist x1 for bed mobility from edge of bed back to supine. She was dependent for bed mobility once in bed. While seated unsupported edge of bed she did perform ankle pumps. We attempted active assistive long arc quads. The patient was educated on glut sets, quad sets, and heel slides while supine in bed; however, the patient was unable to perform return demonstration or understanding. Following completion of treatment, the patient's call light was within reach. The therapist spoke with nursing in regards to her functional mobility at this time as well as concerns with her cognition. RONAK
--- NOTE | 2018-12-24 16:02 | PT.PROG ---
Progress Note Progress Note: S: Pt was in bed and did not understand why she was in the hospital. Pt reported pain in hip and was not motivated to move. O: Pt was lying supine in bed when PT entered the room. SCDs were removed in order to get patient to sit EOB. Transfers: Pt needed max assist x2 in order to assume position at EOB. PT1 guided L leg while PT2 pivoted the sheet. Sitting Balance: Pt sat edge of bed with contact assist x1 for 2 minutes. Sit to Stand: Pt assume standing position with max assist x2 using a walker. Standing: Pt stood for 3 minutes with mod assist x2 using a walker. Stand to Sit: Pt sat with max assist x2 and using PT2 hand to help lower back to EOB. Pt sat edge of bed for 2 minutes. Pt was transferred back into supine position. Pt was left in bed with SCD's applied, bed alarm set and call light within reach. A: PT2 discussed with the nurse about her concerns with transferring the patient to the edge of chair and back. Decided to not transfer to bed side chair in order to keep the pt safe. P: PT will come back in the morning to help transfer the pt to bed side chair.
[2018-12-24] MEDS: Mirtazapine Tab 15 MG TAB PO SCH (20:24)
[2018-12-25] MEDS: traMADol 50 MG TABLET PO PRN (01:31)
[2018-12-25 05:08] LABS: BASOPHILS # (AUTO) 0.04 10*3/UL; BASOPHILS % (AUTO) 0.3 % (0-1); Hematocrit [HCT] 36.9 % (37.0-47.0); LYMPHOCYTES # (AUTO) 0.89 10*3/uL; MEAN CORPUSCULAR HEMOGLOBIN 31.3 PG (27-31); MEAN CORPUSCULAR HGB CONC 32.5 g/dL (33-37); MEAN CORPUSCULAR VOLUME 96.3 FL (81-99); MEAN PLATELET VOLUME 10.2 FL (7.4-12.2); MONOCYTES # (AUTO) 0.87 10*3/UL (0.3-0.8); MONOCYTES % (AUTO) 5.9 % (5-15); NEUTROPHILS % (AUTO) 85.3 % (50-80); RED BLOOD COUNT 3.83 10^6/uL (4.20-5.40)
[2018-12-25 05:13] LABS: BLOOD UREA NITROGEN 20 mg/dL (7-22); BUN/CREATININE RATIO 22.22 (6-20)
[2018-12-25 05:58] LABS: PLATELET MORPHOLOGY COMMENT NORMAL MORPHOLOGY (NORM); RBC MORPHOLOGY COMMENT NORMAL MORPHOLOGY (NORM); WBC MORPHOLOGY COMMENT NORMAL MORPHOLOGY (NORM)
[2018-12-25] MEDS: ENOXAPARIN SODIUM 40 MG/0.4 ML SYRINGE SUBCUT SCH ×2 (09:49→11:15)
[2018-12-25] MEDS: ACETAMINOPHEN 500 MG TABLET PO SCH ×4 (09:49→21:06)
[2018-12-25] MEDS: DOCUSATE 100 MG CAPSULE PO SCH ×3 (09:49→21:06)
[2018-12-25] MEDS: CHOLECALCIFEROL 1000 IU TABLET PO SCH ×2 (09:49→11:14)
[2018-12-25] MEDS: CITALOPRAM 20 MG TABLET PO SCH ×2 (09:49→11:15)
--- NOTE | 2018-12-25 11:21 | PDOC(PROG) ---
Date of Service: 12/25/18 Time of Service: 11:00 Interval History: Subjective Patient said she doesn't feel well although when asked specifically about the hip she is denying pain. She does not appear in distress she was laying in bed. Objective : Data - Labs CBC and BMP: 12/25/18 04:30 12/25/18 04:30 Objective : Exam - General General Appearance: No Acute Distress, Cooperative, Obese - Head Head Exam: Normal Inspection - Eye Eye Exam: Normal Appearance - ENT ENT Exam: Normal Exam - Neck Neck Exam: Normal Inspection - Respiratory Respiratory Exam: Clear to Auscultation - Bilaterally - Cardiovascular Cardiovascular Exam: RRR - GI/Abdominal GI/Abdominal Exam: Normal Bowel Sounds, Non Tender, Non Distended, Soft, No Organomegaly - Rectal Rectal Exam: Deferred - External Exam: Deferred - Extremities Extremities Exam: Normal Inspection - Neurological Additional Neurological Exam Details: Patient is awake but disoriented as a result of her underlying dementia. She is moving all extremities. - Psychiatric Psychiatric Exam: Normal Affect Assessment and Plan - Patient Problems (1) Intertrochanteric fracture of left hip Current Visit: Yes Status: Acute Comment: Continue PT and OT. For DVT prophylaxis start her on Lovenox. Spoke with the Dr. Gupta may be back to the shelter on Friday. Code(s): S72.142A - Displaced intertrochanteric fracture of left femur, initial encounter for closed fracture Qualifiers: Encounter type: initial encounter Fracture type: closed Fracture alignment: displaced Qualified Code(s): S72.142A - Displaced intertrochanteric fracture of left femur, initial encounter for closed fracture (2) Benign hypertension Current Visit: Yes Status: Chronic Comment: I think will restart her HCTZ tomorrow (3) Chronic obstructive lung disease Current Visit: Yes Status: Chronic Comment: Seemed to be stable. Qualifiers: COPD type: emphysema Emphysema type: centrilobular Qualified Code(s): J43.2 - Centrilobular emphysema; J43.2 - Centrilobular emphysema; J43.2 - Centrilobular emphysema; J43.2 - Centrilobular emphysema
--- NOTE | 2018-12-25 11:45 | PT.PROG ---
Progress Note Progress Note: S. Patient stated she wanted to get back in bed. O. Patient performed sit to stand transfer and a pivot transfer to the commode then stand pivot transfer to the bed where she was left with alarm and call light. A. Patient required mod assist x 2 with transfers and mobility, she continues to struggle with pain and requires frequent verbal cues to complete movement. Patient would continue to benefit from skilled therapy to increase strength and mobility. P. Continue POC.
--- NOTE | 2018-12-25 13:39 | ORTHO.PROG ---
Last Taken Vital Signs: Vital Signs - Last Taken Temperature 97.6 F 12/25/18 13:00 Pulse Rate 90 12/25/18 13:00 Respiratory Rate 20 12/25/18 13:00 Blood Pressure 111/41 12/25/18 13:00 Pulse Ox 92 12/25/18 13:00 Subjective: Patient lying in bed. Still has baseline confusion. Not reporting much pain. Able to get up in a chair for about an hour today. Took about 3-4 pain pills all day yesterday. Objective: Vital signs stable patient afebrile. Left hip incisions clean and dry. Able to flex and extend foot. X-rays of the left hip obtained yesterday show satisfactory reduction and hardware placement. Hemoglobin and hematocrit 12 and 38. Assessment: Impression: Stable postop day 2 following fixation left hip fracture. Plan: Plan: Is to keep her here through the weekend. We'll probably let her go back to the care center on Friday if she is doing okay.
--- NOTE | 2018-12-25 15:53 | PT.PROG ---
Progress Note Progress Note: S. Patient stated that she wants to get to the chair. O. Patient stood at the edge of the bed x 2 minutes, then was dependent transferred to the chair where she was left with alarm and call light. A. Patient tolerated transfer poorly, she was unable to perform transfer she attempted to take a step however was unable to move her foot, Patient is very fearful of pain and would continue to benefit from skilled therapy to increase strength, endurance and safety. P. Continue POC.
--- NOTE | 2018-12-25 16:13 | OT.PROG ---
Progress Note Progress Note: S: pt reported pain during movement today. She was from being in good mood, joking to almost in tears. Reported that she just wanted to get up and walk. O: pt needed max A with bed mobility today as she was unable to complete. She needed max A with donning U[employer] house coat as well. A: pt needed quite a bit of assistance through therapy today due to pain and confusion. P: continue per pOc.
--- NOTE | 2018-12-25 16:53 | OTI REPORT ---
Thank you for the referral of Astrid Mcpherson. She was seen on 12/24/18 for an occupational therapy inpatient evaluation status post left hip fracture. SUBJECTIVE: The patient is an 88-year-old female. The patient reports that she is having difficulty remembering how she fell. The patient lives at the [facility] and resides in the [facility]. She did not know that she was in the hospital when the therapist arrived. She did know that she lived in [place]. PAST MEDICAL HISTORY: Past medical history can be found in the patient's medical record. OBJECTIVE FINDINGS: Range of motion: The patient had bilateral upper extremity active range of motion that was within functional limits. Strength: Strength was hard to assess as she did not necessarily understand the precautions or the instructions. She does demonstrate decent strength at 3+/5 bilaterally. Transfers: The patient requires max assist to come from supine to sit. We did not attempt standing today as physical therapy has verbalized that she has difficulty with standing. Balance: The patient requires contact guard to min assist to keep her balance while sitting. Activities of daily living: The patient is dependent for dressing lower extremities and requires mod assist for dressing upper extremities. Cognition: The patient's cognition is poor with processing skills and her memory appeared to be very involved. ASSESSMENT: Due to the patient's memory and cognition concerns, we are not going to attempt dressing equipment. If she physically gets better and her mind clears some, we may consider this. As of today, it is probably not appropriate to have her try to remember how to use adaptive devices for dressing. She will more than likely get assistance once she returns to the [facility]. Problem List: Decreased upper extremity strength Decreased ability to complete functional transfers Decreased cognition Short-Term Goals: To be met by discharge from inpatient: Patient will be able to dress upper extremities independently and lower extremities with max assist. Patient will be able to complete a toilet transfer with min assist. Patient will increase upper extremity strength to 4+/5 throughout. Long-Term Goals: To be met following discharge from inpatient: Patient will return to [facility], being able to complete functional transfers with contact guard assist. TREATMENT PLAN: Patient will be seen B.I.D during the week and one time per day over the weekend as an inpatient to address the above goals and objectives. INITIAL TREATMENT: Treatment today consisted of the initial evaluation followed by the patient transferring from supine to sit with max assist. The patient then transferred from sit to supine and was situated in bed. The patient performed red theraband resisted biceps curls, internal/external rotation, shoulder extension, triceps, and shoulder adduction with hand over hand assist x5 repetitions each. MTDD
--- NOTE | 2018-12-25 17:07 | OT.PROG ---
Progress Note Progress Note: S: pt stated that she wanted to try to go to the bathroom. O: tx consisted of functional transfer to bedside commode where pt completed toileting tasks independently and toileting hygiene with MAX Jena. A: pt needed extra amount of time to complete tasks. P: continue POC
[2018-12-25] MEDS: Mirtazapine Tab 15 MG TAB PO SCH (21:06)
[2018-12-26 05:10] LABS: BLOOD UREA NITROGEN 26 mg/dL (7-22); BUN/CREATININE RATIO 28.88 (6-20)
[2018-12-26 06:10] LABS: Hematocrit [HCT] 34.5 % (37.0-47.0); Hemoglobin [HGB] 11.6 g/dL (12.0-16.0); MEAN CORPUSCULAR HEMOGLOBIN 31.9 PG (27-31); MEAN CORPUSCULAR HGB CONC 33.7 g/dL (33-37); MEAN CORPUSCULAR VOLUME 95 FL (81-99); MEAN PLATELET VOLUME 8.2 FL (7.4-12.2); PLATELET MORPHOLOGY COMMENT NORMAL MORPHOLOGY (NORM); RBC MORPHOLOGY COMMENT NORMAL MORPHOLOGY (NORM); RED BLOOD COUNT 3.64 10^6/uL (4.20-5.40); WBC MORPHOLOGY COMMENT NORMAL MORPHOLOGY (NORM)
[2018-12-26 06:11] LABS: BAND NEUTROPHILS % 0 % (0-10); BASOPHILS % (MANUAL) 0 % (0-1); EOSINOPHILS % (MANUAL) 2 % (0-8); METAMYELOCYTES % 0 %; MONOCYTES % (MANUAL) 2 % (0-12); MYELOCYTES % 0 %; NEUTROPHILS % (MANUAL) 83 % (50-80); PROMYELOCYTES % 0 %
[2018-12-26] MEDS: HYDROCHLOROTHIAZIDE 12.5 MG CAPSULE PO SCH (06:55)
[2018-12-26] MEDS: CHOLECALCIFEROL 1000 IU TABLET PO SCH (08:18)
[2018-12-26] MEDS: ACETAMINOPHEN 500 MG TABLET PO SCH ×3 (08:18→20:23)
[2018-12-26] MEDS: CITALOPRAM 20 MG TABLET PO SCH (08:20)
[2018-12-26] MEDS: ENOXAPARIN SODIUM 40 MG/0.4 ML SYRINGE SUBCUT SCH (08:20)
[2018-12-26] MEDS: DOCUSATE 100 MG CAPSULE PO SCH ×2 (08:20→20:03)
--- NOTE | 2018-12-26 10:26 | PDOC(PROG) ---
Date of Service: 12/26/18 Time of Service: 10:30 Interval History: Subjective Patient was laying in bed denying complaint. Did not remember that she had hip surgery. Objective : Data - Labs CBC and BMP: 12/26/18 04:20 12/26/18 04:20 Objective : Exam - General General Appearance: No Acute Distress, Cooperative - Head Head Exam: Normal Inspection - Eye Eye Exam: Normal Appearance - ENT ENT Exam: Normal Exam - Neck Neck Exam: Normal Inspection - Respiratory Respiratory Exam: Clear to Auscultation - Bilaterally - Cardiovascular Cardiovascular Exam: RRR - GI/Abdominal GI/Abdominal Exam: Normal Bowel Sounds, Non Tender, Non Distended, Soft, No Organomegaly - Rectal Rectal Exam: Deferred - External Exam: Deferred - Extremities Extremities Exam: Normal Inspection - Back Back Exam: Normal Inspection - Neurological Neurological Exam: Alert, CN II-XII Intact, No Facial Droop, Speech Intact / Clear, Moves All Extremities Equally - Psychiatric Psychiatric Exam: Normal Affect Assessment and Plan - Patient Problems (1) Intertrochanteric fracture of left hip Current Visit: Yes Status: Acute Comment: Status post surgery [facility]. For DVT prophylaxis she is on Lovenox. Code(s): S72.142A - Displaced intertrochanteric fracture of left femur, initial encounter for closed fracture Qualifiers: Encounter type: initial encounter Fracture type: closed Fracture alignment: displaced Qualified Code(s): S72.142A - Displaced intertrochanteric fracture of left femur, initial encounter for closed fracture (2) Benign hypertension Current Visit: Yes Status: Chronic Comment: We restarted her HCTZ. (3) Chronic obstructive lung disease Current Visit: Yes Status: Chronic Comment: This is stable. Qualifiers: COPD type: emphysema Emphysema type: centrilobular Qualified Code(s): J43.2 - Centrilobular emphysema; J43.2 - Centrilobular emphysema; J43.2 - Centrilobular emphysema; J43.2 - Centrilobular emphysema
[2018-12-26] MEDS ORDERED: Potassium Chloride Tab 10 MEQ TAB PO ONE (10:27)
--- NOTE | 2018-12-26 11:18 | ORTHO.PROG ---
Last Taken Vital Signs: Vital Signs - Last Taken Temperature 96.6 F L 12/26/18 06:53 Pulse Rate 88 12/26/18 11:06 Respiratory Rate 20 12/26/18 11:06 Blood Pressure 126/43 12/26/18 11:06 Pulse Ox 96 12/26/18 11:06 Subjective: Patient lying in bed. Not reporting any pain. Confused as to where she is and if she has any children. Only took 1 pain pill yesterday morning about 1 in the morning. Pulled her Preveena a dressing off last night. Objective: Vital signs stable patient afebrile. ABDs dressings on left hip. Hemoglobin and hematocrit 12 and 36. Assessment: Impression: Stable postop day 3 from left hip fracture. Plan: Plan: Is to continue current care. [facility] care center transfer on Friday.
[2018-12-26] MEDS: traMADol 50 MG TABLET PO PRN (16:51)
[2018-12-26] MEDS: Mirtazapine Tab 15 MG TAB PO SCH (20:02)
--- NOTE | 2018-12-27 08:35 | ORTHO.PROG ---
Last Taken Vital Signs: Vital Signs - Last Taken Temperature 97.1 F 12/27/18 06:53 Pulse Rate 85 12/27/18 06:53 Respiratory Rate 21 12/27/18 06:53 Blood Pressure 118/44 12/27/18 06:53 Pulse Ox 94 12/27/18 06:53 Subjective: Patient sitting up in chair. Seems more alert today. Taking only 1 Ultram a day. Objective: Vital signs stable patient afebrile. Left hip incisions with dressings in place. No obvious significant drainage. Assessment: Impression: Stable postop day 4 from pinning of left hip fracture. Plan: Plan: Patient is ready to be transferred back to the care center probably tomorrow. She will need to see me in 2-3 weeks with a new x-ray of her hip. Hosston need to be removed at the care center probably in about 8-10 days. Steri-Strips will need to be applied with Mastisol or benzoin. Remain partial weightbearing left side with walker. Probably will just mostly do transfers from bed to chair.
[2018-12-27] MEDS: ENOXAPARIN SODIUM 40 MG/0.4 ML SYRINGE SUBCUT SCH (08:47)
[2018-12-27] MEDS: CITALOPRAM 20 MG TABLET PO SCH (08:47)
[2018-12-27] MEDS: DOCUSATE 100 MG CAPSULE PO SCH ×2 (08:48→20:30)
[2018-12-27] MEDS: Potassium Chloride Tab 10 MEQ TAB PO SCH (08:48)
[2018-12-27] MEDS: CHOLECALCIFEROL 1000 IU TABLET PO SCH (08:48)
[2018-12-27] MEDS: traMADol 50 MG TABLET PO PRN (08:48)
[2018-12-27] MEDS: HYDROCHLOROTHIAZIDE 12.5 MG CAPSULE PO SCH (08:49)
[2018-12-27] MEDS: ACETAMINOPHEN 500 MG TABLET PO SCH ×3 (09:00→20:30)
--- NOTE | 2018-12-27 09:01 | PDOC(PROG) ---
Date of Service: 12/27/18 Time of Service: 09:00 Interval History: Subjective Patient was sitting in the chair does not appear in distress. Denying complaint. No hip pain. However she has dementia. Objective : Data - Labs CBC and BMP: 12/26/18 04:20 12/26/18 04:20 Objective : Exam - General General Appearance: No Acute Distress, Cooperative, Obese - Head Head Exam: Normal Inspection - Eye Eye Exam: Normal Appearance - ENT ENT Exam: Normal Exam - Neck Neck Exam: Normal Inspection - Respiratory Respiratory Exam: Clear to Auscultation - Bilaterally - Cardiovascular Cardiovascular Exam: RRR - GI/Abdominal GI/Abdominal Exam: Normal Bowel Sounds, Non Tender, Non Distended, Soft, No Organomegaly - Rectal Rectal Exam: Deferred - External Exam: Deferred - Extremities Extremities Exam: Normal Inspection - Back Back Exam: Normal Inspection - Neurological Neurological Exam: Alert, CN II-XII Intact, No Facial Droop, Speech Intact / Clear, Moves All Extremities Equally - Psychiatric Psychiatric Exam: Normal Affect Assessment and Plan - Patient Problems (1) Intertrochanteric fracture of left hip Current Visit: Yes Status: Acute Comment: Status post surgery. Continue PT and OT. Plan for her to go to long term tomorrow. For DVT prophylaxis she is on Lovenox. Code(s): S72.142A - Displaced intertrochanteric fracture of left femur, initial encounter for closed fracture Qualifiers: Encounter type: initial encounter Fracture type: closed Fracture alignment: displaced Qualified Code(s): S72.142A - Displaced intertrochanteric fracture of left femur, initial encounter for closed fracture (2) Benign hypertension Current Visit: Yes Status: Chronic Comment: Continue HCTZ (3) Chronic obstructive lung disease Current Visit: Yes Status: Chronic Comment: She is on oxygen. Stable. Qualifiers: COPD type: emphysema Emphysema type: centrilobular Qualified Code(s): J43.2 - Centrilobular emphysema; J43.2 - Centrilobular emphysema; J43.2 - Centrilobular emphysema; J43.2 - Centrilobular emphysema
--- NOTE | 2018-12-27 10:20 | PT.PROG ---
Progress Note Progress Note: S: Pt. states she doesn't want to get up. States she would just like to . O: Treatment consisted of therapeutic exercises; AAROM of left LE into qs, hs, hip abd/add, ankle pumps. Bed mobility with mod to max assist x 2 from supine to edge of bed. She was able to sit eob x 5 minutes with no assist. She then perf ormed sit to stands x 2 with mod assist x 2. She then was transitioned from sit to supine and adjusted in the bed. Bed alarm was placed and nursing was notified. A: Pt. did well with her first sit to stand and required less assist. With her next stand, she required more assist. She is unable to get into our out of bed with less then 2 person assist. She continue to require skilled therapy to addre ss mobility and strength deficits. P: Continue per POC to increase strength and activity. Barbara Gomez, [employer] TEAM[employer]
--- NOTE | 2018-12-27 10:49 | OT.PROG ---
Progress Note Progress Note: S: pt stated that she didnt want to be in the hospital for a month but agreed to therapy. O: tx consisted of STS x2 with MIN A for hand placement. pt stood WBAT approximately 3 min x2. pt needed x1 tactile cue for hand placement with transfer. pt used walker for stability. A: pt tolerated session well today. pt is improving in functional abilities. P: continue POC
[2018-12-27] MEDS: Mirtazapine Tab 15 MG TAB PO SCH (20:30)
[2018-12-28 06:24] VITALS: BP 131/56; RESP 18; TEMP 97.2; O2SAT 96
[2018-12-28] MEDS: HYDROCHLOROTHIAZIDE 12.5 MG CAPSULE PO SCH (06:38)
[2018-12-28] MEDS: traMADol 50 MG TABLET PO PRN (07:54)
[2018-12-28] MEDS: DOCUSATE 100 MG CAPSULE PO SCH (08:00)
[2018-12-28] MEDS: CITALOPRAM 20 MG TABLET PO SCH (08:00)
[2018-12-28] MEDS: ACETAMINOPHEN 500 MG TABLET PO SCH (08:00)
[2018-12-28] MEDS: Potassium Chloride Tab 10 MEQ TAB PO SCH (08:01)
[2018-12-28] MEDS: CHOLECALCIFEROL 1000 IU TABLET PO SCH (08:01)
[2018-12-28] MEDS: ENOXAPARIN SODIUM 40 MG/0.4 ML SYRINGE SUBCUT SCH (08:01)
--- NOTE | 2018-12-28 09:50 | DCSUMMARY ---
Hospitalization Summary Admit Date: December 22 Discharge Date: 12/28/18 Hospital Course: Discharge diagnoses 1. Open reduction internal fixation of left comminuted hip fracture 2. Coronary artery disease status post CABG 3. History of dementia 4. History of hypertension 5. History of depression Hospital course This is an 88 years old female with medical history significant for history of dementia, coronary artery disease with previous CABG, hypertension who reside at the [facility] who apparently fell and was brought to the ER for evaluation. In the ER evaluation revealed left hip comminuted hip fracture. She was admitted to the hospital by Dr. Pearce please see his note. Patient underwent open reduction internal fixation by Dr. Gupta. Postoperatively her course was uneventful. She was started PT and OT. We started also on DVT prophylaxis. On the day of discharge she was denying complaint though she has history of dementia, she does not appear in distress though. We thought that she can go back to the long-term and continue her physical therapy there. She need additional 30 days of Lovenox. She'll need follow-up also with Dr. Gupta. Discharge instruction Diet regular Activity as tolerated with physical therapy her mobility is busy at transfer Medications Active Medications Cholecalciferol (Vitamin D3) 2,000 iu PO DAILY [facility] Last Admin: 12/28/18 08:01 Dose: 2,000 iu Documented by: Citalopram Hydrobromide (Celexa) 20 mg PO DAILY [facility] Last Admin: 12/28/18 08:00 Dose: 20 mg Documented by: Docusate Sodium (Colace) 100 mg PO BID [facility] Last Admin: 12/28/18 08:00 Dose: 100 mg Documented by: Enoxaparin Sodium (Lovenox Inj) 40 mg SUBCUT DAILY [facility] Last Admin: 12/28/18 08:01 Dose: 40 mg Documented by: Hydrochlorothiazide (Hydrodiuril) 12.5 mg PO DAILY@0700 [facility] Last Admin: 12/28/18 06:38 Dose: 12.5 mg Documented by: Mirtazapine (Remeron) 7.5 mg PO BEDTIME [facility] Last Admin: 12/27/18 20:30 Dose: 7.5 mg Documented by: Potassium Chloride (Klor-Con) 10 meq PO DAILY [facility] Last Admin: 12/28/18 08:01 Dose: 10 meq Documented by: Tramadol HCl (Ultram) 50 mg PO Q6H PRN PRN Reason: pain Last Admin: 12/28/18 07:54 Dose: 50 mg Documented by: Follow-up with her PCP and with Dr. Gupta Condition at discharge was stable for discharge Exam - Vitals Vital Signs: Vital Signs Temperature 97.2 F Temperature Source Temporal Artery Scan Pulse Rate [Apical] 86 Pulse Rate [Pulse Oximeter 78 Right] Pulse Rate [Left Middle Finger 64 ] Pulse Rate 83 Respiratory Rate 18 Blood Pressure [Right Arm] 131/56 Blood Pressure [Left Arm] 130/60 Blood Pressure 159/63 Pulse Ox [Left Middle Finger] 95 Pulse Ox 96 Oxygen Flow Rate [Left Middle 2 Finger] Oxygen Flow Rate 3 Oxygen Delivery Method [Left Nasal Cannula Middle Finger] Oxygen Delivery Method Nasal Cannula Height 5 ft Weight 181 lb 1.6 oz - General General Appearance: No Acute Distress, Cooperative - Head Head Exam: Normal Inspection - Eye Eye Exam: POSITIVE: Normal Appearance - ENT ENT Exam: POSITIVE: Normal Exam - Neck Neck Exam: Normal Inspection - Respiratory Respiratory Exam: POSITIVE: Clear to Auscultation - Bilaterally - Cardiovascular Cardiovascular Exam: POSITIVE: RRR - GI/Abdominal GI/Abdominal Exam: POSITIVE: Normal Bowel Sounds, Non Tender, Non Distended, Soft, No Organomegaly - Rectal Rectal Exam: POSITIVE: Deferred - External Exam: POSITIVE: Deferred - Extremities Extremities Exam: POSITIVE: Normal Inspection - Back Back Exam: POSITIVE: Normal Inspection - Neurological Neurological Exam: POSITIVE: Alert, CN II-XII Intact, No Facial Droop, Speech Intact / Clear, Moves All Extremities Equally - Psychiatric Psychiatric Exam: POSITIVE: Normal Affect Patient Problems - Patient Problem List (1) Intertrochanteric fracture of left hip Current Visit: Yes Status: Acute Code(s): S72.142A - Displaced intertrochanteric fracture of left femur, initial encounter for closed fracture Qualifiers: Encounter type: initial encounter Fracture type: closed Fracture alignment: displaced Qualified Code(s): S72.142A - Displaced intertrochanteric fracture of left femur, initial encounter for closed fracture Category: Medical (2) Benign hypertension Current Visit: Yes Status: Chronic Category: Medical (3) Chronic obstructive lung disease Current Visit: Yes Status: Chronic Qualifiers: COPD type: emphysema Emphysema type: centrilobular Qualified Code(s): J43.2 - Centrilobular emphysema; J43.2 - Centrilobular emphysema; J43.2 - Centrilobular emphysema; J43.2 - Centrilobular emphysema Category: Medical
--- NOTE | 2018-12-28 12:02 | OT.PROG ---
Progress Note Progress Note: S: pt stated that she didnt want to move but knew she had to. O: tx consisted of UE AROM exercises in all planes of motion. A: pt did not want to do anything else due to pain levels. P: continue POC
--- NOTE | 2018-12-28 16:43 | PT.PROG ---
Progress Note Progress Note: S. Patient stated she did not want to do much therapy. O. Patient performed seated long arc quads, marches, heel toe raises all x10 bilaterally. Patient performed pivot transfer to the chair where she was left with alarm and call light. A. Patient tolerated exercise fair, she continues to require frequent verbal cues to complete all exercises. Patient would continue to benefit from skilled therapy to increase strength, mobility and safety. P. Continue POC.
== END 2018-12-28 10:43 | DRG 482 ==
LOC: ER 09:40 → MED/SURG 12:37 → OPS 12-23 12:15 → MED/SURG 12-23 17:13
PROVIDERS: ADMIT Family Medicine; ATTEND Family Medicine